=== PATIENT | female | born 1985 | race Caucasian/White ===

== ENCOUNTER 2016-07-14 19:33 | Emergency (ER) | payer SELFPAY ==
[2016-07-14 20:28] VITALS: BP 111/72
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
== END 2016-07-14 21:24 | disposition left against medical advice (07) ==
LOC: UCCORT 19:33
DX: M54.2 Cervicalgia (principal); Z91.030 Bee allergy status
CPT/HCPCS: 99213; G0463

== ENCOUNTER 2016-10-09 17:51 | Emergency (ER) | payer OTHER ==
[2016-10-09] MEDS ORDERED: Aspirin Low Dose CHEW TAB* 81 MG PO ONE (18:09)
[2016-10-09] MEDS ORDERED: Nitroglycerin TAB 0.4 MG* 0.4 MG TAB SL ONE (18:17)
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
[2016-10-09 18:51] VITALS: BP 127/80
== END 2016-10-09 18:45 | disposition short-term general hospital (02) ==
LOC: UCEAST 17:51
DX: R07.9 Chest pain, unspecified (principal); Z91.030 Bee allergy status
CPT/HCPCS: 93005; 99213; A9270-GY; G0463

== ENCOUNTER 2016-10-09 19:03 | Observation (INO) | payer OTHER ==
[2016-10-09] MEDS ORDERED: NS 0.9% 1000 ML* 1,000 ML IV ONE (19:18)
[2016-10-09] MEDS ORDERED: Nitroglycerin TAB 0.4 MG* 0.4 MG TAB SL PRN ×2 (19:18→21:26)
[2016-10-09 19:39] LABS: Hematocrit 37 % (35-47); Hemoglobin 12.5 g/dl (12.0-16.0); Mean Corpuscular HGB Conc 34 g/dl (31-36); Mean Corpuscular Hemoglobin 31 pg (27-31); Mean Corpuscular Volume 92 fL (80-97); Mean Platelet Volume 9 um3 (7.4-10.4); Red Blood Count 4.03 10^6/ul (4.0-5.4); Red Cell Distribution Width 13 % (10.5-15); White Blood Count 6.8 10^3/ul (3.5-10.8)
[2016-10-09 19:49] LABS: ALT 10 U/L (7-52); AST 15 U/L (13-39); Albumin 4.1 g/dL (3.2-5.2); Alkaline Phosphatase 30 U/L (34-104); Anion Gap 8 mmol/L (2-11); BUN/Creatinine Ratio 22.9 (8-20); Blood Urea Nitrogen 19 mg/dL (6-24); CO2 Carbon Dioxide 26 mmol/L (22-32); Calcium 9.2 mg/dL (8.6-10.3); Chloride 103 mmol/L (101-111); Creatine Kinase 70 U/L (10-223); EGFR African American 103.1 (>60); EGFR Non-African American 80.2 (>60); Globulin 2.8 g/dL (2-4); Glucose 88 mg/dL (70-100); Magnesium 1.7 mg/dL (1.9-2.7); Potassium 3.4 mmol/L (3.5-5.0); Sodium 137 mmol/L (133-145); Total Protein 6.9 g/dL (6.4-8.9)
[2016-10-09 19:54] LABS: Troponin I 0.01 ng/mL (<0.04)
[2016-10-09 20:01] LABS: TSH (Thyroid Stimulating Horm) 1.79 mcIU/mL (0.34-5.60)
--- NOTE | 2016-10-09 20:09 | RAD ---
Indication: Mid to LEFT side chest pain. Comparison: December 17, 2011 Technique: Upright AP 1930 hours Report: Clear lungs and pleural spaces. Negative for pneumothorax. The heart, pulmonary vasculature, and mediastinal contours are unremarkable. Unremarkable osseous structures and soft tissue contours. IMPRESSION: No evidence for acute intrathoracic disease.
[2016-10-09] MEDS ORDERED: Ondansetron INJ* 2 MG/ML VIAL IV PRN (21:22)
[2016-10-09] MEDS ORDERED: Al Hydrox/Mg Hydrox/Simet LIQ* 30 ML UDC PO PRN (21:22)
[2016-10-09] MEDS ORDERED: Magnesium Hydroxide LIQ* 30 ML UDC PO PRN (21:22)
[2016-10-09] MEDS ORDERED: Magnesium Oxide TAB* 400 MG PO ONE (22:17)
[2016-10-09] MEDS ORDERED: Potassium Chlor TAB* 20 MEQ TAB.ER PO ONE (22:17)
[2016-10-09] MEDS: Acetaminophen TAB* 325 MG PO PRN (23:36)
--- NOTE | 2016-10-10 05:03 | ED ---
IJayden,Danelle, scribed for Selin Locke MD on 10/09/16 at 1915 . HPI Chest Pain - HPI Summary HPI Summary: This 31 y/o female [facility] for acute 7/10 left anterior chest tightness at 1500 PM. Pain radiates down to LUE and remains constant. Pt was sitting in couch with her kids at time of onset. Positive numbness/tingling. Negative diaphoresis or nausea that was associated with today 's episode. Pt was given ASA and NTG [facility]. Elevated blood pressure is reported at [facility]. Last BP [facility] was 120/76. PMHx is negative for prior cardiac dz. No similar pain before. Other PMHx includes ear tumor s/p left ear surgery. FHx is significant for early onset of heart disease before 40 years old. Her sister had DC at age 36. Father and grandfather had DC before 40 years old. LMP was 10/05/2016. Nonsmoker and nondrinker. A1 with miscarriage. - History of Current Complaint Hx Obtained From: Patient, Medical Records Hx Last Menstrual Period: one wk Onset/Duration: Started Hours Ago, Atraumatic, Still Present Time of Onset: 15:00 Timing: Constant Initial Severity: Severe Current Severity: Moderate Pain Intensity: 7 Pain Scale Used: 0-10 Numeric Chest Pain Location: Left Anterior Chest Pain Radiates: Yes Chest Pain Radiates To:: Arm - LUE Character: Tightness Aggravating Factor(s): Nothing Alleviating Factor(s): NTG 123 - 1 [facility] to ED with relief, EMS Tx Associated Signs and Symptoms: Positive: Chest Pain, Numbness - LUE, Tingling - LUE. Negative: Shortness of Breath, Fever, Diaphoresis, Nausea, Calf Pain/ Swelling, Vomiting - Risk Factors AMI/ACS Risk Factors: Family History - Allergy/Home Medications Allergies/Adverse Reactions: Allergies Allergy/AdvReac Type Severity Reaction Status Date / Time Bee Venom Allergy Shortness Verified 10/09/16 19:30 of Breath BEE STINGS Allergy Shortness Uncoded 10/09/16 17:58 of Breath PMH/Surg Hx/FS Hx/Imm Hx Previously Healthy: Yes Endocrine/Hematology History: Denies: Hx Anticoagulant Therapy, Hx Diabetes, Hx Thyroid Disease Cardiovascular History: Denies: Hx Congestive Heart Failure, Hx Deep Vein Thrombosis, Hx Hypertension , Hx Myocardial Infarction, Hx Pacemaker/ICD Respiratory History: Denies: Hx Asthma, Hx Chronic Obstructive Pulmonary Disease (COPD), Hx Lung Cancer, Hx Pneumonia, Hx Pulmonary Embolism GI History: Denies: Hx Gall Bladder Disease, Hx Gastrointestinal Bleed, Hx Ulcer, Hx Urosepsis History: Denies: Hx Kidney Stones, Hx Renal Disease Neurological History: Denies: Hx Dementia, Hx Migraine, Hx Seizures, Hx Transient Ischemic Attacks (TIA) Psychiatric History: Denies: Hx Anxiety, Hx Depression, Hx Schizophrenia, Hx Bipolar Disorder - Surgical History Surgery Procedure, Year, and Place: left ear surg for ear tumor - Immunization History Date of Tetanus Vaccine: up to date per pt. 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 Lives: With Family Alcohol Use: None Hx Substance Use: No Substance Use Type: Reports: None Hx Tobacco Use: No Smoking Status (MU): Never Smoked Tobacco Review of Systems Negative: Fever, Skin Diaphoresis Positive: Chest Pain Negative: Shortness Of Breath Negative: Vomiting, Nausea Skin: Negative Neurological: Negative Psychological: Normal All Other Systems Reviewed And Are Negative: Yes Physical Exam Triage Information Reviewed: Yes Vital Signs On Initial Exam: Initial Vitals Temp Pulse Resp BP Pulse Ox 99.2 F 92 11 122/79 97 10/09/16 19:17 10/09/16 19:17 10/09/16 19:17 10/09/16 19:17 10/09/16 19:17 Vital Signs Reviewed: Yes Appearance: Positive: Well-Appearing, No Pain Distress, Well-Nourished Skin: Positive: Warm, Skin Color Reflects Adequate Perfusion, Dry Head/Face: Positive: Normal Head/Face Inspection Eyes: Positive: Conjunctiva Clear ENT: Positive: Normal ENT inspection Neck: Positive: Supple, Nontender, No Lymphadenopathy Respiratory/Lung Sounds: Positive: Clear to Auscultation, Breath Sounds Present , Other - No respiratory distress Cardiovascular: Positive: RRR, Pulses are Symmetrical in both Upper and Lower Extremities. Negative: Leg Edema Left, Leg Edema Right Abdomen Description: Positive: Nontender, No Organomegaly, Soft. Negative: Distended, Guarding, Hepatomegaly, McBurney's Point Tenderness, Peritoneal Signs , Pulsatile Mass, Splenomegaly Bowel Sounds: Positive: Present Musculoskeletal: Positive: Strength/ROM Intact. Negative: Curry Sign Left, Curry Sign Right, Edema Left, Edema Right Neurological: Positive: Sensory/Motor Intact, Alert, Oriented to Person Place, Time, Facial Symmetry, Speech Normal Psychiatric: Positive: Affect/Mood Appropriate AVPU Assessment: Alert Diagnostics - Vital Signs Vital Signs Temp Pulse Resp BP Pulse Ox 10/09/16 21:15 85 20 130/80 97 10/09/16 21:00 84 22 127/91 97 10/09/16 20:45 88 23 127/78 98 10/09/16 20:30 80 21 122/78 98 10/09/16 20:15 82 24 106/76 98 10/09/16 20:00 84 16 109/60 99 10/09/16 19:56 88 16 117/61 100 10/09/16 19:50 80 18 119/74 98 10/09/16 19:47 82 18 98 10/09/16 19:45 120/79 10/09/16 19:18 89 10/09/16 19:17 99.2 F 92 11 122/79 97 - Laboratory Lab Results: Lab Results 10/09/16 10/09/16 10/09/16 Range/Units 18:25 18:25 18:25 WBC 6.8 (3.5-10.8) 10^3/ul RBC 4.03 (4.0-5.4) 10^6/ul Hgb 12.5 (12.0-16.0) g/dl Hct 37 (35-47) % MCV 92 (80-97) fL MCH 31 (27-31) pg MCHC 34 (31-36) g/dl RDW 13 (10.5-15) % Plt Count 211 (150-450) 10^3/ul MPV 9 (7.4-10.4) um3 Neut % (Auto) 49.5 (38-83) % Lymph % (Auto) 42.9 (25-47) % [facility] % (Auto) 4.4 (1-9) % Eos % (Auto) 2.4 (0-6) % Baso % (Auto) 0.8 (0-2) % Absolute Neuts (auto) 3.3 (1.5-7.7) 10^3/ul Absolute Lymphs (auto) 2.9 (1.0-4.8) 10^3/ul Absolute Monos (auto) 0.3 (0-0.8) 10^3/ul Absolute Eos (auto) 0.2 (0-0.6) 10^3/ul Absolute Basos (auto) 0.1 (0-0.2) 10^3/ul Absolute Nucleated RBC 0 10^3/ul Nucleated RBC % 0.1 INR (Anticoag Therapy) (0.89-1.11) APTT (26.0-36.3) seconds D-Dimer, Quantitative (Less Than 230) ng/mL Sodium 137 (133-145) mmol/L Potassium 3.4 L (3.5-5.0) mmol/L Chloride 103 (101-111) mmol/L Carbon Dioxide 26 (22-32) mmol/L Anion Gap 8 (2-11) mmol/L BUN 19 (6-24) mg/dL Creatinine 0.83 (0.51-0.95) mg/dL Est GFR ( Amer) 103.1 (>60) Est GFR (Non-Af Amer) 80.2 (>60) BUN/Creatinine Ratio 22.9 H (8-20) Glucose 88 (70-100) mg/dL Lactic Acid 0.8 (0.5-2.0) mmol/L Calcium 9.2 (8.6-10.3) mg/dL Magnesium 1.7 L (1.9-2.7) mg/dL Total Bilirubin 0.50 (0.2-1.0) mg/dL AST 15 (13-39) U/L ALT 10 (7-52) U/L Alkaline Phosphatase 30 L (34-104) U/L Total Creatine Kinase 70 (10-223) U/L CK-MB (CK-2) 2.1 (0.6-6.3) ng/mL Troponin I 0.01 (<0.04) ng/mL B-Natriuretic Peptide ( - 100) pg/mL Total Protein 6.9 (6.4-8.9) g/dL Albumin 4.1 (3.2-5.2) g/dL Globulin 2.8 (2-4) g/dL Albumin/Globulin Ratio 1.5 (1-3) TSH 1.79 (0.34-5.60) mcIU/mL Beta HCG, Quant < 0.60 mIU/mL 10/09/16 10/09/16 Range/Units 18:25 18:25 WBC (3.5-10.8) 10^3/ul RBC (4.0-5.4) 10^6/ul Hgb (12.0-16.0) g/dl Hct (35-47) % MCV (80-97) fL MCH (27-31) pg MCHC (31-36) g/dl RDW (10.5-15) % Plt Count (150-450) 10^3/ul MPV (7.4-10.4) um3 Neut % (Auto) (38-83) % Lymph % (Auto) (25-47) % [facility] % (Auto) (1-9) % Eos % (Auto) (0-6) % Baso % (Auto) (0-2) % Absolute Neuts (auto) (1.5-7.7) 10^3/ul Absolute Lymphs (auto) (1.0-4.8) 10^3/ul Absolute Monos (auto) (0-0.8) 10^3/ul Absolute Eos (auto) (0-0.6) 10^3/ul Absolute Basos (auto) (0-0.2) 10^3/ul Absolute Nucleated RBC 10^3/ul Nucleated RBC % INR (Anticoag Therapy) 0.97 (0.89-1.11) APTT 31.9 (26.0-36.3) seconds D-Dimer, Quantitative < 200 (Less Than 230) ng/mL Sodium (133-145) mmol/L Potassium (3.5-5.0) mmol/L Chloride (101-111) mmol/L Carbon Dioxide (22-32) mmol/L Anion Gap (2-11) mmol/L BUN (6-24) mg/dL Creatinine (0.51-0.95) mg/dL Est GFR ( Amer) (>60) Est GFR (Non-Af Amer) (>60) BUN/Creatinine Ratio (8-20) Glucose (70-100) mg/dL Lactic Acid (0.5-2.0) mmol/L Calcium (8.6-10.3) mg/dL Magnesium (1.9-2.7) mg/dL Total Bilirubin (0.2-1.0) mg/dL AST (13-39) U/L ALT (7-52) U/L Alkaline Phosphatase (34-104) U/L Total Creatine Kinase (10-223) U/L CK-MB (CK-2) (0.6-6.3) ng/mL Troponin I (<0.04) ng/mL B-Natriuretic Peptide 33 ( - 100) pg/mL Total Protein (6.4-8.9) g/dL Albumin (3.2-5.2) g/dL Globulin (2-4) g/dL Albumin/Globulin Ratio (1-3) TSH (0.34-5.60) mcIU/mL Beta HCG, Quant mIU/mL Result Diagrams: 10/09/16 18:25 10/09/16 18:25 Lab Statement: Any lab studies that have been ordered have been reviewed, and results considered in the medical decision making process. - Radiology CXR Xray Interpretation: No Acute Changes Radiology Interpretation Completed By: Radiologist - EKG 1928 Cardiac Rate: NL - 79 bpm EKG Rhythm: Sinus Rhythm EKG Interpretation: Normal EKG with normal AV/IV conduction, QTc of 421, and normal axis Re-Evaluation - Re-Evaluation First Eval Re-Evaluation Time: 20:55 Change: Improved Comment: MD in room to re-evaluate pt. Pain is currently 2/10 after 2 Nitro and ASA. 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 No heart murmur auscultated upon re-examination. Chest Pain Course/Dx - Course Course Of Treatment: Consultation: Dr. Holliday (Hospitalist) paged at 2046 PM. Call returned at 2100 PM. Agreeable to admission. Assessment/Plan: With the quality of pt's pain and strong fam hx and the fact that pain decreased with NTG, will admit obs for further evaluation and treatment of her chest pain. - Chest Pain Differential Diagnosis/HQI/PQRI: Acute DC, Chest Wall, GI Disease, Pulmonary Embolism - Diagnoses Provider Diagnoses: Chest pain - Provider Notifications Discussed Care Of Patient With: Joann Holliday Time Discussed With Above Provider: 21:01 Instructed by Provider To: Admit As Observation Discharge - Discharge Plan Condition: Stable Disposition: ADMITTED TO [facility] The documentation as recorded by the Jayden davis Soohyun accurately reflects the service I personally performed and the decisions made by Chucky payton Barbara J, MD.
--- NOTE | 2016-10-10 05:34 | HP ---
CC: Arnold Webster MD * HISTORY AND PHYSICAL: DATE OF ADMISSION: 10/09/16 TIME OF EVALUATION: 2099 PRIMARY CARE PHYSICIAN: Arnold Webster MD CHIEF COMPLAINT: Chest pain. HISTORY OF PRESENT ILLNESS: This is a 31-year-old female with a significant family cardiac history, who presents to the emergency room from Urgent Care via EMS for chest pain. The patient states she was sitting on her couch around 3 p.m. this afternoon with her daughters. While watching TV, she developed substernal chest pain. It started to radiate to the left and then it would radiate down her left arm intermittently with numbness and tingling down her arm. It seemed to get progressively worse without any relief with drinking water. She has had some slight nausea along with it. She went to Urgent Care for evaluation and they sent her to the emergency room due to her significant family history. No shortness of breath, no diaphoresis. This has never happened to her before. She denies any URI symptoms. No fevers or chills. No vomiting, diarrhea, or abdominal pain. No lower extremity swelling. She has had an intentional weight loss of 40 pounds over the past 6 months. Otherwise, remaining review of systems is negative. She did get a nitro that did help her chest pain, it is not as bad, but still present. Otherwise, remaining review of systems is negative. In the emergency room, the patient had labs, imaging, and was referred to the hospitalist service for further evaluation. PAST MEDICAL HISTORY: Unremarkable. MEDICATIONS: None. ALLERGIES: BEE VENOM. FAMILY HISTORY: Her sister is alive, had an OK at age 36. Her father had an OK when he was less than 40 years of age. She has a significant cardiac history on her father's side with all of his siblings having MIs at a young age. SOCIAL HISTORY: The patient is a [id number] mother with 4 children, ages 11, 8, 4, and 1. No smoking. She occasionally has wine. Her healthcare proxy is her , Evan. Her code status is full code. REVIEW OF SYSTEMS: A 14-point review of systems reviewed. Pertinent positives and negatives are mentioned in the HPI, otherwise are negative. PHYSICAL EXAMINATION GENERAL: In no acute distress, resting comfortably. VITAL SIGNS: Temp 99.2, pulse rate 85, respiratory rate 20, oxygen saturation 97 % on room air, blood pressure 130/80. HEENT: Head normocephalic, atraumatic. Pupils are equal and reactive. Anicteric. Oropharynx, mucous membranes moist. No erythema or exudate. NECK: Supple. No adenopathy. RESPIRATORY: Clear to auscultation. No wheezes, rhonchi, or rales. CARDIAC: Regular rate and rhythm. Soft systolic murmur heard throughout. ABDOMEN: Soft, nontender, nondistended. EXTREMITIES: No clubbing, cyanosis, or edema. +2 DP. NEUROLOGIC: Alert and oriented x3. No focal neurologic deficits. DIAGNOSTIC STUDIES/LAB DATA: White count 6.8, hemoglobin 12.5, hematocrit 37, platelets 211. INR is 0.97. D-dimer is less than 200. Sodium 137, potassium 3.4, chloride 103, bicarb 26, BUN 19, creatinine 0.83, glucose 88. Magnesium 1.7. Alk phos 30. Troponin 0.01. BNP is 33. HCG is less than 60. Radiographic data: No evidence for acute intrathoracic disease. EKG shows normal sinus rhythm. ASSESSMENT: This is a 31-year-old female, who presents to the emergency room with chest pain in the setting of significant cardiac family history. 1. Chest pain. Assessment: It has improved with nitro, but still present. Her initial workup is unremarkable; but in the setting of her significant family history, it is not unreasonable to admit her overnight for observation to rule out acute coronary syndrome and have a treadmill stress test in the morning. Plan: As mentioned, telemetry, trend her troponins, obtain a lipid panel, continue her on a baby aspirin for now. We will do a treadmill stress test in the morning. 2. Diet: Regular diet, n.p.o. after midnight in case her treadmill stress test has to become nuclear stress test. 3. DVT prophylaxis: The patient is a low risk patient. We will encourage ambulation. 4. Code status is full code. PATIENT TIME: Greater than 70 minutes spent doing the history and physical, more than half the time spent in direct patient contact. [id number] #: [id number] MTDD
[2016-10-10] MEDS ORDERED: NS 0.9% 1000 ML* 1,000 ML IV SCH (08:00)
[2016-10-10] MEDS ORDERED: Aspirin EC Low Dose* 81 MG TAB.EC PO SCH (09:00)
[2016-10-10] MEDS: Acetaminophen TAB* 325 MG PO PRN (12:00)
[2016-10-10 12:12] VITALS: BP 100/53
[2016-10-10 14:22] LABS: HDL Cholesterol 43.9 mg/dL
--- NOTE | 2016-10-11 03:40 | DS ---
CC: Dr. Webster * DISCHARGE SUMMARY: DATE OF ADMISSION: 10/09/16 DATE OF DISCHARGE: 10/10/16 PRIMARY CARE PROVIDER: Dr. Webster. PRINCIPAL DIAGNOSIS: Noncardiac chest pain. DISCHARGE MEDICATIONS: None. HOSPITAL COURSE: Ms. Mason is a 31-year-old female who has a very strong family history of premature coronary artery disease in both her sister and father, who presented to the emergency room with complaints of chest pain. The patient's chest pain began while sitting on the couch and radiates down her left arm. The patient presented to the emergency room for evaluation. She was admitted and ruled out for an acute coronary syndrome. The patient underwent an exercise stress echocardiogram that was read to be negative maximal stress echocardiogram. The patient at this point is chest pain free. She is stable and ready for discharge home. On the day of admission, the patient is awake, alert, and oriented, sitting up in bed, in no acute distress. Cardiac exam reveals normal S1 and S2 with a regular rate and rhythm. Cardiac exam revealed clear lungs bilaterally. There is no lower extremity edema. FOLLOWUP CONCERNS: The patient is being discharged home today 10/10/16. ACTIVITY LEVEL: As tolerated. DIET: Regular. CONDITION ON DISCHARGE: Stable. The patient should follow up with Dr. Webster within the next 1 to 2 weeks. TIME SPENT: 20 minutes were spent discharging this patient. [id number] #: [id number] MTDD
== END 2016-10-10 16:15 | disposition home or self-care (01) ==
LOC: ED 19:03 → MEDTELE 21:22
PROVIDERS: ADMIT Pediatrics; ATTEND Hospitalist
DX: R07.9 Chest pain, unspecified (principal); M79.602 Pain in left arm; Z82.49 Family history of ischemic heart disease and other diseases of the circulatory system
CPT/HCPCS: 36415; 71010; 80053; 80061; 82550; 82553; 83605; 83735; 83880; 84443; 84484; 84702; 85025; 85379; 85610; 85730; 93005; 93350; 96360; 96374; 99285; A9270-GY; G0378; J2405

== ENCOUNTER 2017-02-09 10:54 | Emergency (ER) | payer OTHER ==
[2017-02-09 11:09] VITALS: BP 113/75
--- NOTE | 2017-02-09 12:25 | UC ---
Ear Complaint HPI - HPI Summary HPI Summary: pt c/o left ear ache that has worsened over last 24 hours. Pt has history of left ear tumor, benign in 2003. - History of Current Complaint Chief Complaint: UCEar Stated Complaint: LEFT EAR PAIN Time Seen by Provider: 02/09/17 11:38 Hx Last Menstrual Period: 01/20/17 ?: No Onset/Duration: Gradual Onset, Lasting Days, Still Present, Worse Since - onset Pain Intensity: 0 Pain Scale Used: 0-10 Numeric Associated Signs/Symptoms: Positive: Hearing Loss, Swelling @ - out left ear - Allergies/Home Medications Allergies/Adverse Reactions: Allergies Allergy/AdvReac Type Severity Reaction Status Date / Time Bee Venom Allergy Shortness Verified 02/09/17 11:05 of Breath BEE STINGS Allergy Shortness Uncoded 02/09/17 11:05 of Breath PMH/Surg Hx/FS Hx/Imm Hx Previously Healthy: Yes Other History Of: Negative For: HIV, Hepatitis B, Hepatitis C, Anticoagulant Therapy - Surgical History Surgical History: Yes Surgery Procedure, Year, and Place: 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 - Family History Known Family History: Positive: Cardiac Disease - [place] before 40 to father and sister, Hypertension, Other - atopy - Social History Occupation: Employed Full-time Lives: With Family Alcohol Use: None Substance Use Type: None Smoking Status (MU): Never Smoked Tobacco Have You Smoked in the Last Year: No - Immunization History Most Recent Influenza Vaccination: 12/17/11 Most Recent Tetanus Shot: 2012 Most Recent Pneumonia Vaccination: 06/08/12 Review of Systems Constitutional: Negative Skin: Negative Eyes: Negative ENT: Ear Ache Respiratory: Negative Cardiovascular: Negative Gastrointestinal: Negative Genitourinary: Negative Motor: Negative Neurovascular: Negative Musculoskeletal: Negative Neurological: Negative Psychological: Negative Is Patient Immunocompromised?: No All Other Systems Reviewed And Are Negative: Yes Physical Exam Triage Information Reviewed: Yes Appearance: Well-Appearing Vital Signs: Initial Vital Signs Temp 99.7 F 02/09/17 11:05 Pulse 62 02/09/17 11:05 Resp 20 02/09/17 11:05 BP 113/75 02/09/17 11:05 Pulse Ox 100 02/09/17 11:05 Vital Signs Reviewed: Yes Eye Exam: Normal ENT Exam: Other ENT: Positive: Other - left ear canal cerumen impaction, tragal tenderness Dental Exam: Normal Neck exam: Normal Respiratory Exam: Normal Cardiovascular Exam: Normal Musculoskeletal Exam: Normal Neurological Exam: Normal Psychological Exam: Normal Skin Exam: Normal Ear Complaint Course/Dx - Differential Dx/Diagnosis Differential Diagnosis/HQI/PQRI: Cerumen Impaction, Otitis Media Provider Diagnoses: cerumen impaction-left ear Discharge - Discharge Plan Condition: Stable Disposition: HOME Patient Education Materials: Cerumen Impaction (ED) Referrals: Arnold Webster MD [Primary Care Provider] - If Needed
== END 2017-02-09 12:09 | disposition home or self-care (01) ==
LOC: UCCORT 10:54
DX: H61.22 Impacted cerumen, left ear (principal)
CPT/HCPCS: 69209; 99211; G0463

== ENCOUNTER 2017-04-10 11:36 | Emergency (ER) | payer OTHER ==
[2017-04-10 14:44] VITALS: BP 140/80
--- NOTE | 2017-04-10 15:12 | ED ---
Abdominal Pain/Female - HPI Summary HPI Summary: 31 yr old female with lower abdominal pain. The patient states that she had onset of lower abdominal pain that radiates into the low back last evening at 8 pm when she was sitting on the couch. She denies fever, chills. The patient denies NVD. Denies vaginal discharge, bleeding. Denies dysuria, frequency. She states she had an ectopic 11 years ago. LMP mid Mar. - History of Current Complaint Chief Complaint: UCAbdominalPain Stated Complaint: LOWER BACK/ABDOMINAL PAIN Time Seen by Provider: 04/10/17 14:57 Hx Last Menstrual Period: 03/19/17 Pain Intensity: 7 Allergies/Adverse Reactions: Allergies Allergy/AdvReac Type Severity Reaction Status Date / Time MS Bee Venom [Bee Venom] Allergy Shortness Verified 04/10/17 14:45 of Breath BEE STINGS Allergy Shortness Uncoded 02/09/17 11:05 of Breath PMH/Surg Hx/FS Hx/Imm Hx Endocrine/Hematology History: Denies: Hx Anticoagulant Therapy, Hx Diabetes, Hx Thyroid Disease Cardiovascular History: Denies: Hx Congestive Heart Failure, Hx Deep Vein Thrombosis, Hx Hypertension , Hx Myocardial Infarction, Hx Pacemaker/ICD Comment Only: Other Cardiovascular Problems/Disorders - Family Hx of cardiac Dxs Respiratory History: Denies: Hx Asthma, Hx Chronic Obstructive Pulmonary Disease (COPD), Hx Lung Cancer, Hx Pneumonia, Hx Pulmonary Embolism GI History: Denies: Hx Gall Bladder Disease, Hx Gastrointestinal Bleed, Hx Ulcer, Hx Urosepsis History: Reports: Other Problems/Disorders - ulcers Denies: Hx Kidney Stones, Hx Renal Disease Sensory History: Denies: Hx Contacts or Glasses, Hx Hearing Aid Opthamlomology History: Denies: Hx Contacts or Glasses Neurological History: Denies: Hx Dementia, Hx Migraine, Hx Seizures, Hx Transient Ischemic Attacks (TIA) Psychiatric History: Denies: Hx Anxiety, Hx Depression, Hx Schizophrenia, Hx Bipolar Disorder - Surgical History Surgery Procedure, Year, and Place: 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 Infectious Disease History: No Infectious Disease History: Denies: History Other Infectious Disease, Traveled Outside the [place] in Last 30 Days - Family History Known Family History: Positive: Cardiac Disease - [place] before 40 to father and sister, Hypertension, Other - atopy - Social History Occupation: Works From/At Home Lives: With Family Alcohol Use: Rare Hx Substance Use: No Substance Use Type: Reports: None Hx Tobacco Use: No Smoking Status (MU): Never Smoked Tobacco Have You Smoked in the Last Year: No Review of Systems Constitutional: Negative Positive: Abdominal Pain All Other Systems Reviewed And Are Negative: Yes Physical Exam Triage Information Reviewed: Yes Vital Signs On Initial Exam: Initial Vitals Temp Pulse Resp BP Pulse Ox 99.4 F 74 14 140/80 100 04/10/17 14:38 04/10/17 14:38 04/10/17 14:38 04/10/17 14:38 04/10/17 14:38 Vital Signs Reviewed: Yes Appearance: Positive: Well-Appearing, No Pain Distress Skin: Positive: Warm, Skin Color Reflects Adequate Perfusion Head/Face: Positive: Normal Head/Face Inspection Eyes: Positive: EOMI ENT: Positive: Normal ENT inspection Neck: Positive: Nontender Respiratory/Lung Sounds: Positive: Clear to Auscultation, Breath Sounds Present Cardiovascular: Positive: RRR. Negative: Murmur Abdomen Description: Positive: Other: - tender in both lower quadrants. Musculoskeletal: Positive: Strength/ROM Intact Neurological: Positive: Sensory/Motor Intact, Alert, Oriented to Person Place, Time, CN Intact II-III Psychiatric: Positive: Normal - [place] Coma Scale Best Eye Response: 4 - Spontaneous Best Motor Response: 6 - Obeys Commands Best Verbal Response: 5 - Oriented Coma Scale Total: 15 Diagnostics - Vital Signs Vital Signs Temp Pulse Resp BP Pulse Ox 04/10/17 14:38 99.4 F 74 14 140/80 100 - Laboratory Lab Results: Lab Results 04/10/17 04/10/17 Range/Units 14:15 14:19 POC Urine Color Yellow POC Urine Clarity Slightly cloudy POC Urine pH 5.5 (5-9) POC Ur Specif [place] 1.025 (1.010-1.030) POC Urine Protein Negative (Negative) POC Ur Glucose (UA) Negative (Negative) POC Urine Ketones Negative (Negative) POC Urine Blood Negative (Negative) POC Urine Nitrite Negative (Negative) POC Urine Bilirubin Negative (Negative) POC Urine Urobilinogen 0.2 (Negative) POC U Leukocyte Esteras Negative (Negative) POC Ur Test Negative (Negative) Lab Statement: Any lab studies that have been ordered have been reviewed, and results considered in the medical decision making process. Abdominal Pain Fem Course/Dx - Course Course Of Treatment: 31 yr old female with neg HCG and neg UA dip. She signed out AMA. She was offered transfer to ER by ambulance, but refused and signed out AMA. Risks understood. - Diagnoses Provider Diagnoses: Abdominal pain Discharge - Discharge Plan Condition: Good Disposition: AGAINST MEDICAL ADVICE Referrals: Arnold Webster MD [Primary Care Provider] -
== END 2017-04-10 15:08 | disposition left against medical advice (07) ==
LOC: UCCORT 11:36
DX: R10.30 Lower abdominal pain, unspecified (principal); Z32.02 Encounter for pregnancy test, result negative
CPT/HCPCS: 81003; 84702; 99212; G0463

== ENCOUNTER 2017-07-23 12:07 | Emergency (ER) | payer OTHER ==
[2017-07-23 13:12] LABS: ABS Basophils 0 10^3/ul (0-0.2); ABS Eosinophils 0 10^3/ul (0-0.6); ABS Lymphocytes 1.7 10^3/ul (1.0-4.8); ABS Monocytes 0.3 10^3/ul (0-0.8); ABS Neutrophils 5.3 10^3/ul (1.5-7.7); ABS Nucleated RBC 0 10^3/ul; Eosinophil % 0.7 % (0-6); Hematocrit 39 % (35-47); Hemoglobin 13.3 g/dl (12.0-16.0); Lymphocyte % 22.9 % (25-47); Mean Corpuscular HGB Conc 34 g/dl (31-36); Mean Corpuscular Hemoglobin 31 pg (27-31); Mean Corpuscular Volume 92 fL (80-97); Mean Platelet Volume 8.7 um3 (7.4-10.4); Nucleated Red Blood Cells % 0; Platelet Count 185 10^3/ul (150-450); Red Blood Count 4.25 10^6/ul (4.0-5.4); Red Cell Distribution Width 13 % (10.5-15); White Blood Count 7.5 10^3/ul (3.5-10.8)
[2017-07-23 13:27] LABS: INR 0.98 (0.77-1.02)
[2017-07-23 13:29] LABS: EGFR Non-African American 104.5 (>60)
--- NOTE | 2017-07-23 15:26 | RAD ---
HISTORY: Cramping, COMPARISONS: None TECHNIQUE: Multiple transverse and longitudinal ultrasound images were obtained of the pelvis using grayscale, and M-Mode Doppler imaging using the endovaginal transducer. FINDINGS: UTERUS: The uterus is normal in shape, size, contour, and echotexture. GESTATION: There is a single live intrauterine gestation. The crown-rump length measures 1.69 cm for a gestational age of 8 weeks, 1 day. The RJ is March 03, 2018. cardiac motion is detected at a rate of 169 beats per minute. movement is not identified. anatomy cannot be assessed secondary to early dates. The amniotic fluid is qualitatively normal. There is a small subchorionic hemorrhage measuring approximately 0.3 x 2 x 2.6 cm in size. CUL-DE-SAC: There is a small amount of fluid within the cul-de-sac. RIGHT OVARY: The right ovary measures 2.7 x 2.1 x 1.5 cm. LEFT OVARY: The left ovary measures 3.3 x 1.8 x 2.6 cm. A corpus luteum is noted BLADDER: The bladder is not well visualized. IMPRESSION: 1. SINGLE LIVE INTRAUTERINE GESTATION AT 8 WEEKS, 1 DAY BY CROWN-RUMP LENGTH. 2. SMALL SUBCHORIONIC HEMORRHAGE.
--- NOTE | 2017-07-23 15:55 | ED ---
- HPI Summary HPI Summary: Patient is a 31-year-old 9 week female based on LMP ( approximately June 03), however unknown due to irregularity, presents to the ED with a concern for embryonic demise. She endorses some bilateral lower abdominal pain which has been intermittent, rated a 3/10, cramping without vaginal bleeding. Denies any chance of STD. is at bedside. Denies any spotting or vaginal discharge. She states she has been feeling otherwise well. Denies any urinary symptoms. She denies any right upper or left upper quadrant pain. She is otherwise healthy, takes no medications. Pain is not worse with movement or better with rest. She states she had a spontaneous at 14 weeks and was asymptomatic at the time, which causes her for more concern. Denies any back pain. She endorses nausea, but no vomiting. - History of Current Complaint Chief Complaint: EDOBProblems Stated Complaint: CRAMPING/8 WEEKS PREG Time Seen by Provider: 07/23/17 13:24 Hx Obtained From: Patient Chief Complaint: Concern for Embryonic Dem Onset/Duration: Started Days Ago Timing: Constant Severity: Moderate Current Severity: Moderate Pain Intensity: 3 Character: Dull Associated Signs and Symptoms: Negative: Appetite, Back Pain, Fever, Genital Swelling or Blisters, Retained Foreign Body (Specify), Urinary Symptoms, Vaginal Bleeding or Discharge - Assessment Hx Now: Yes SAB: 1 IEA: 0 - Additional Pertinent History Primary Care Physician: [id number] Maternal Blood Type and Rh: A Positive - Allergies/Home Medications Allergies/Adverse Reactions: Allergies Allergy/AdvReac Type Severity Reaction Status Date / Time bee venom protein (honey bee) Allergy Shortness Verified 07/23/17 12:09 of Breath PMH/Surg Hx/FS Hx/Imm Hx Previously Healthy: Yes Endocrine/Hematology History: Denies: Hx Anticoagulant Therapy, Hx Diabetes, Hx Thyroid Disease Cardiovascular History: Denies: Hx Congestive Heart Failure, Hx Deep Vein Thrombosis, Hx Hypertension , Hx Myocardial Infarction, Hx Pacemaker/ICD Comment Only: Other Cardiovascular Problems/Disorders - Family Hx of cardiac Dxs Respiratory History: Denies: Hx Asthma, Hx Chronic Obstructive Pulmonary Disease (COPD), Hx Lung Cancer, Hx Pneumonia, Hx Pulmonary Embolism GI History: Denies: Hx Gall Bladder Disease, Hx Gastrointestinal Bleed, Hx Ulcer, Hx Urosepsis History: Reports: Other Problems/Disorders - ulcers Denies: Hx Kidney Stones, Hx Renal Disease Sensory History: Denies: Hx Contacts or Glasses, Hx Hearing Aid Opthamlomology History: Denies: Hx Contacts or Glasses Neurological History: Denies: Hx Dementia, Hx Migraine, Hx Seizures, Hx Transient Ischemic Attacks (TIA) Psychiatric History: Denies: Hx Anxiety, Hx Depression, Hx Schizophrenia, Hx Bipolar Disorder - Surgical History Surgery Procedure, Year, and Place: 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 Hx Pertussis Vaccination: No Immunizations Up to Date: Yes Infectious Disease History: No Infectious Disease History: Denies: History Other Infectious Disease, Traveled Outside the [place] in Last 30 Days - Family History Known Family History: Positive: Cardiac Disease - [place] before 40 to father and sister, Hypertension, Other - atopy - Social History Occupation: Employed Full-time Lives: With Family Alcohol Use: Rare Hx Substance Use: No Substance Use Type: Reports: None Hx Tobacco Use: No Smoking Status (MU): Never Smoked Tobacco Have You Smoked in the Last Year: No Review of Systems Constitutional: Negative Negative: Fever, Chills, Fatigue, Skin Diaphoresis Negative: Photophobia, Blurred Vision Negative: Palpitations, Chest Pain Negative: Shortness Of Breath, Cough Positive: Abdominal Pain - lower abdominal cramping bilateral Genitourinary: Negative Positive: no symptoms reported, see HPI Skin: Negative Neurological: Negative All Other Systems Reviewed And Are Negative: Yes Physical Exam - Physical Exam Triage Information Reviewed: Yes Appearance: Positive: Well-Appearing, Well-Nourished Skin: Positive: Warm, Skin Color Reflects Adequate Perfusion Head/Face: Positive: Normal Head/Face Inspection Eyes: Positive: EOMI, RAQUEL, Conjunctiva Clear Neck: Positive: Supple, No Lymphadenopathy Respiratory/Lung Sounds: Positive: Clear to Auscultation, Breath Sounds Present Cardiovascular: Positive: Normal, RRR, Pulses are Symmetrical in both Upper and Lower Extremities Musculoskeletal: Positive: Strength/ROM Intact Neurological: Positive: Normal, Sensory/Motor Intact, Speech Normal Psychiatric: Positive: Affect/Mood Appropriate Diagnostics - Vital Signs Vital Signs Temp Pulse Resp BP Pulse Ox 07/23/17 13:40 98.6 F 76 17 112/63 100 07/23/17 12:10 98.1 F 71 14 131/75 99 - Laboratory Lab Results: Lab Results 07/23/17 07/23/17 07/23/17 Range/Units 13:01 13:01 13:01 WBC 7.5 (3.5-10.8) 10^3/ul RBC 4.25 (4.0-5.4) 10^6/ul Hgb 13.3 (12.0-16.0) g/dl Hct 39 (35-47) % MCV 92 (80-97) fL MCH 31 (27-31) pg MCHC 34 (31-36) g/dl RDW 13 (10.5-15) % Plt Count 185 (150-450) 10^3/ul MPV 8.7 (7.4-10.4) um3 Neut % (Auto) 71.3 (38-83) % Lymph % (Auto) 22.9 L (25-47) % [place] % (Auto) 4.5 (0-7) % Eos % (Auto) 0.7 (0-6) % Baso % (Auto) 0.6 (0-2) % Absolute Neuts (auto) 5.3 (1.5-7.7) 10^3/ul Absolute Lymphs (auto) 1.7 (1.0-4.8) 10^3/ul Absolute Monos (auto) 0.3 (0-0.8) 10^3/ul Absolute Eos (auto) 0 (0-0.6) 10^3/ul Absolute Basos (auto) 0 (0-0.2) 10^3/ul Absolute Nucleated RBC 0 10^3/ul Nucleated RBC % 0 INR (Anticoag Therapy) 0.98 (0.77-1.02) Sodium 136 L (139-145) mmol/L Potassium 4.0 (3.5-5.0) mmol/L Chloride 106 (101-111) mmol/L Carbon Dioxide 26 (22-32) mmol/L Anion Gap 4 (2-11) mmol/L BUN 10 (6-24) mg/dL Creatinine 0.66 (0.51-0.95) mg/dL Est GFR ( Amer) 134.3 (>60) Est GFR (Non-Af Amer) 104.5 (>60) BUN/Creatinine Ratio 15.2 (8-20) Glucose 122 H (70-100) mg/dL Calcium 9.4 (8.6-10.3) mg/dL Total Bilirubin 0.60 (0.2-1.0) mg/dL AST 16 (13-39) U/L ALT 12 (7-52) U/L Alkaline Phosphatase 35 (34-104) U/L Total Protein 7.3 (6.4-8.9) g/dL Albumin 4.4 (3.2-5.2) g/dL Globulin 2.9 (2-4) g/dL Albumin/Globulin Ratio 1.5 (1-3) Beta HCG, Quant 857307.00 mIU/mL Blood Type Antibody Screen 07/23/17 Range/Units 13:01 WBC (3.5-10.8) 10^3/ul RBC (4.0-5.4) 10^6/ul Hgb (12.0-16.0) g/dl Hct (35-47) % MCV (80-97) fL MCH (27-31) pg MCHC (31-36) g/dl RDW (10.5-15) % Plt Count (150-450) 10^3/ul MPV (7.4-10.4) um3 Neut % (Auto) (38-83) % Lymph % (Auto) (25-47) % [place] % (Auto) (0-7) % Eos % (Auto) (0-6) % Baso % (Auto) (0-2) % Absolute Neuts (auto) (1.5-7.7) 10^3/ul Absolute Lymphs (auto) (1.0-4.8) 10^3/ul Absolute Monos (auto) (0-0.8) 10^3/ul Absolute Eos (auto) (0-0.6) 10^3/ul Absolute Basos (auto) (0-0.2) 10^3/ul Absolute Nucleated RBC 10^3/ul Nucleated RBC % INR (Anticoag Therapy) (0.77-1.02) Sodium (139-145) mmol/L Potassium (3.5-5.0) mmol/L Chloride (101-111) mmol/L Carbon Dioxide (22-32) mmol/L Anion Gap (2-11) mmol/L BUN (6-24) mg/dL Creatinine (0.51-0.95) mg/dL Est GFR ( Amer) (>60) Est GFR (Non-Af Amer) (>60) BUN/Creatinine Ratio (8-20) Glucose (70-100) mg/dL Calcium (8.6-10.3) mg/dL Total Bilirubin (0.2-1.0) mg/dL AST (13-39) U/L ALT (7-52) U/L Alkaline Phosphatase (34-104) U/L Total Protein (6.4-8.9) g/dL Albumin (3.2-5.2) g/dL Globulin (2-4) g/dL Albumin/Globulin Ratio (1-3) Beta HCG, Quant mIU/mL Blood Type A Positive Antibody Screen Negative Result Diagrams: 07/23/17 13:01 07/23/17 13:01 Lab Statement: Any lab studies that have been ordered have been reviewed, and results considered in the medical decision making process. Course/Dx - Course Course Of Treatment: Pain is not felt on deep palpation on physical exam. Vital signs are stable. Labs are unremarkable. HCG 181,000+, ultrasound obtained which shows a live intrauterine at approximately 8 weeks and 1 day based on crown-rump hump. Patient is made aware. She states she is okay for discharge and will follow-up with [facility]. I have also given her information on subchorionic hemorrhage. Patient is given Reglan, safe in , for nausea/vomiting associated with . - Differential Diagnosis/HQI/PQRI: Incomplete , Missed , Spontaneous , Threatened , Early , Subchorionic Hemorrhage - Diagnoses Provider Diagnoses: Subchorionic hemorrhage, Discharge - Sign-Out/Discharge Documenting (check all that apply): Discharge/Admit/Transfer - Discharge Plan Condition: Stable Disposition: HOME Prescriptions: Metoclopramide TAB* [Reglan TAB*] 10 mg PO Q6H PRN #20 tab PRN Reason: Nausea Patient Education Materials: (ED), Subchorionic Hemorrhage (ED) Referrals: Arnold Webster MD [Primary Care Provider] - Medhat Parrish MD [Medical Doctor] - Additional Instructions: Please follow up with OBGYN Take Reglan as prescribed If you develop any worsening or changing symptoms, return to the ED - Billing Disposition and Condition Condition: STABLE Disposition: HOME
[2017-07-23 16:08] VITALS: BP 113/63
== END 2017-07-23 16:11 | disposition home or self-care (01) ==
LOC: ED 12:07
DX: O20.8 Other hemorrhage in early pregnancy (principal); Z3A.09 9 weeks gestation of pregnancy
CPT/HCPCS: 36415; 76801; 80053; 84702; 85025; 85610; 86850; 86900; 86901; 99282

== ENCOUNTER 2017-08-25 18:46 | Emergency (ER) | payer OTHER ==
[2017-08-25 20:46] LABS: ABS Basophils 0 10^3/ul (0-0.2); ABS Eosinophils 0.2 10^3/ul (0-0.6); ABS Lymphocytes 1.6 10^3/ul (1.0-4.8); ABS Monocytes 0.4 10^3/ul (0-0.8); ABS Neutrophils 5.6 10^3/ul (1.5-7.7); ABS Nucleated RBC 0 10^3/ul; Eosinophil % 2.6 % (0-6); Hematocrit 37 % (35-47); Hemoglobin 12.9 g/dl (12.0-16.0); Lymphocyte % 20.2 % (25-47); Mean Corpuscular HGB Conc 35 g/dl (31-36); Mean Corpuscular Hemoglobin 32 pg (27-31); Mean Corpuscular Volume 92 fL (80-97); Mean Platelet Volume 8.9 um3 (7.4-10.4); Nucleated Red Blood Cells % 0; Platelet Count 170 10^3/ul (150-450); Red Blood Count 4.04 10^6/ul (4.00-5.40); Red Cell Distribution Width 14 % (10.5-15); White Blood Count 7.9 10^3/ul (3.5-10.8)
[2017-08-25 21:02] LABS: EGFR Non-African American 100.3 (>60)
--- NOTE | 2017-08-25 21:43 | RAD ---
HISTORY: Vaginal bleeding COMPARISONS: Similar pelvic ultrasound dated July 23, 2017 that yielded a gestational age of 8 weeks and 1 day TECHNIQUE: Multiple transverse and longitudinal ultrasound images were obtained of the pelvis using grayscale, color flow, spectral and M-mode sonographic imaging. FINDINGS: UTERUS: The uterus is normal in shape, size, contour, and echotexture. GESTATION: There is a single live intrauterine gestation. The crown-rump length measures 7.1 cm yielding a gestational age of 13 weeks and 2 days. The mean gestational sac diameter measures 7.6 centimeters. cardiac motion is detected at a rate of 170 beats per minute. CUL-DE-SAC: There is no free fluid within the cul-de-sac. RIGHT OVARY: The right ovary measures 3.0 x 1.3 x 2.9 cm. LEFT OVARY: The left ovary measures 2.9 x 1.7 x 3.1 cm. IMPRESSION: Single live intrauterine gestation with a crown-rump length yielding a gestational age of 13 weeks and 2 days.
[2017-08-25 21:54] LABS: Urine Appearance Cloudy; Urine Blood Negative (Negative); Urine Color Yellow; Urine Ketones Negative (Negative); Urine Protein Negative (Negative); Urine Specific Gravity 1.018 (1.010-1.030); Urine Urobilinogen Negative (Negative)
[2017-08-25] MEDS ORDERED: Nitrofurantoin Macrocrystals* 100 MG CAP PO ONE (21:59)
--- NOTE | 2017-08-25 22:05 | ED ---
Matt Rodriguez Rebecca, scribed for Selin Locke MD on 08/25/17 at 205 . - HPI Summary HPI Summary: Pt is a 32 y/o F who is almost 14 weeks who presents to ED c/o abdominal pain and vaginal bleeding. Sx began yesterday. Bleeding described as bright red blood characterized as spotting that did not require a pad and resolved today. Pain is located in the lower abdomen, characterized as cramping , and moderate ranked 6/10. Denies dysuria, polydipsia and polyuria. Similar episode at 8 weeks of (6 weeks ago) during which she was given a Dx of subchorionic hemorrhage and she also experienced pain at that time. A1 - miscarriage at 14 weeks and her current symptoms are not similar to when she had a miscarriage. Oldest child is 12 years old and the youngest is 2, last delivery through [facility] and she has never received rhogam. Has previously had placenta previa though she has never had gestational diabetes or preeclampsia. Follows up with [facility] [place] and is taking vitamins. LNMP June 02, 2017 and due date is March 02, 2018. - History of Current Complaint Chief Complaint: EDOBProblems Stated Complaint: 14 WKS PREG/VAGINAL BLEEDING Time Seen by Provider: 08/25/17 20:41 Hx Obtained From: Patient Chief Complaint: Pain, Vaginal Bleeding Onset/Duration: Started Days Ago - 2 days, Still Present Current Severity: Moderate Pain Intensity: 6 Location of Pain: Suprapubic Character: Cramping Aggravating Factors: Nothing Alleviating Factors: Nothing - Assessment Hx Now: Yes SAB: 1 IEA: 0 - Additional Pertinent History Primary Care Physician: [id number] Maternal Blood Type and Rh: A Positive - Allergies/Home Medications Allergies/Adverse Reactions: Allergies Allergy/AdvReac Type Severity Reaction Status Date / Time bee venom protein (honey bee) Allergy Shortness Verified 08/25/17 19:05 of Breath PMH/Surg Hx/FS Hx/Imm Hx Endocrine/Hematology History: Denies: Hx Anticoagulant Therapy, Hx Diabetes, Hx Thyroid Disease Cardiovascular History: Denies: Hx Congestive Heart Failure, Hx Deep Vein Thrombosis, Hx Hypertension , Hx Myocardial Infarction, Hx Pacemaker/ICD Comment Only: Other Cardiovascular Problems/Disorders - Family Hx of cardiac Dxs Respiratory History: Denies: Hx Asthma, Hx Chronic Obstructive Pulmonary Disease (COPD), Hx Lung Cancer, Hx Pneumonia, Hx Pulmonary Embolism GI History: Denies: Hx Gall Bladder Disease, Hx Gastrointestinal Bleed, Hx Ulcer, Hx Urosepsis History: Reports: Other Problems/Disorders - ulcers Denies: Hx Kidney Stones, Hx Renal Disease Sensory History: Denies: Hx Contacts or Glasses, Hx Hearing Aid Opthamlomology History: Denies: Hx Contacts or Glasses Neurological History: Denies: Hx Dementia, Hx Migraine, Hx Seizures, Hx Transient Ischemic Attacks (TIA) Psychiatric History: Denies: Hx Anxiety, Hx Depression, Hx Schizophrenia, Hx Bipolar Disorder - Surgical History Surgery Procedure, Year, and Place: 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 Infectious Disease History: No Infectious Disease History: Denies: History Other Infectious Disease, Traveled Outside the [place] in Last 30 Days - Family History Known Family History: Positive: Cardiac Disease - [place] before 40 to father and sister, Hypertension, Diabetes - Grandmother, Other - atopy - Social History Alcohol Use: Rare Hx Substance Use: No Substance Use Type: Reports: None Hx Tobacco Use: No Smoking Status (MU): Never Smoked Tobacco Have You Smoked in the Last Year: No Review of Systems Negative: Fever Positive: Abdominal Pain - Cramping Positive: other - Vaginal bleeding; NEGATIVE: Polydipsia, polyuria. Negative: dysuria All Other Systems Reviewed And Are Negative: Yes Physical Exam - Summary Physical Exam Summary: Appearance: Well-appearing, minimal pain distress, well-nourished Skin: Warm, color reflects adequate perfusion, dry Head: Normal Head/Face inspection, atraumatic Eyes: Conjunctiva clear ENT: Normal inspection Neck: Supple, no nodes, no JVD Respiratory: Lungs clear, normal breath sounds, no respiratory distress Cardio: RRR, No murmur, pulses normal, brisk capillary refill Abdomen: Soft, nontender, , fundus palpable 3 fingers breadth below umbilicus Bowel sounds: Present Musculoskeletal: Strength Intact/ROM intact, no calf tenderness, no edema. Psychological: Normal Neuro: Alert, muscle tone normal, no focal deficit - Physical Exam Triage Information Reviewed: Yes Vital Signs On Initial Exam: Initial Vitals Temp Pulse Resp BP Pulse Ox 98.5 F 78 14 117/68 100 08/25/17 19:06 08/25/17 19:06 08/25/17 19:06 08/25/17 19:06 08/25/17 19:06 Vital Signs Reviewed: Yes Diagnostics - Vital Signs Vital Signs Temp Pulse Resp BP Pulse Ox 08/25/17 19:06 98.5 F 78 14 117/68 100 - Laboratory Result Diagrams: 08/25/17 20:39 08/25/17 20:39 Lab Statement: Any lab studies that have been ordered have been reviewed, and results considered in the medical decision making process. - Ultrasound No standard instances Ultrasound Interpretation Completed By: Radiologist - US : Single live intrauterine gestation with a crown-rump length yielding a gestational age of 13 weeks and 2 days. ED physician reviewed this report. Re-Evaluation - Re-Evaluation First Eval Re-Evaluation Time: 21:45 Comment: Discussed US results. Second Eval Re-Evaluation Time: 21:54 Comment: Discussed lab results. The pt is in no pain and has no bleeding. Discussed discharge. Course/Dx - Course Course Of Treatment: Patient is A positive blood type so no need for rhogam. - Diagnoses Provider Diagnoses: Vaginal bleeding, Second trimester , UTI in Discharge - Sign-Out/Discharge Documenting (check all that apply): Discharge/Admit/Transfer - Discharge - Discharge Plan Condition: Stable Disposition: HOME Referrals: Arnold Webster MD [Primary Care Provider] - The documentation as recorded by the Matt davis Rebecca accurately reflects the service I personally performed and the decisions made by , Selin Locke MD.
[2017-08-25 22:35] VITALS: BP 104/65
== END 2017-08-25 22:25 | disposition home or self-care (01) ==
LOC: ED 18:46
DX: O46.92 Antepartum hemorrhage, unspecified, second trimester (principal); O23.42 Unspecified infection of urinary tract in pregnancy, second trimester; Z3A.14 14 weeks gestation of pregnancy
CPT/HCPCS: 36415; 76801; 80053; 81003; 81015; 83605; 85025; 85730; 86850; 86900; 86901; 87086; 99283; A9270-GY

== ENCOUNTER → 2017-09-10 20:38 | Emergency (ER) | payer OTHER ==
[~2017-09-10 20:38] MED LIST: Metoclopramide IV* 5 MG/ML 2 ML VIAL IV ONE; NS 0.9% 1000 ML* 1,000 ML IV ONE
[2017-09-10 21:56] LABS: ABS Basophils 0 10^3/ul (0-0.2); ABS Eosinophils 0.1 10^3/ul (0-0.6); ABS Lymphocytes 1.5 10^3/ul (1.0-4.8); ABS Monocytes 0.5 10^3/ul (0-0.8); ABS Neutrophils 8.6 10^3/ul (1.5-7.7); ABS Nucleated RBC 0 10^3/ul; Eosinophil % 0.8 % (0-6); Hematocrit 34 % (35-47); Hemoglobin 12.2 g/dl (12.0-16.0); Lymphocyte % 14.1 % (25-47); Mean Corpuscular HGB Conc 35 g/dl (31-36); Mean Corpuscular Hemoglobin 32 pg (27-31); Mean Corpuscular Volume 90 fL (80-97); Mean Platelet Volume 8.4 um3 (7.4-10.4); Nucleated Red Blood Cells % 0.1; Platelet Count 191 10^3/ul (150-450); Red Blood Count 3.82 10^6/ul (4.00-5.40); Red Cell Distribution Width 13 % (10.5-15); White Blood Count 10.7 10^3/ul (3.5-10.8)
--- NOTE | 2017-09-10 22:00 | ED ---
- HPI Summary HPI Summary: Patient is a 32-year-old female presenting to the ED with a 2 hour history of nausea vomiting after eating some chicken this afternoon. She also endorses concern over no movement over the past 3 days. Patient is 16 weeks . She is . Denies any vaginal bleeding or discharge. Endorses bilateral lower abdominal cramping. Last episode of emesis was approximately 1 hour [employer]. She states she has no antiemetics at home. Takes vitamin daily but otherwise denies any medications. She denies any constipation, diarrhea. at bedside states he also ate the same chicken, but denies any symptoms. - History of Current Complaint Chief Complaint: EDNauseaVomitDiarrh Stated Complaint: VOMITING Time Seen by Provider: 09/10/17 21:01 Hx Obtained From: Patient Chief Complaint: Other: - nausea/vomiting Onset/Duration: Started Hours Ago Timing: Constant Severity: Moderate Current Severity: Moderate Pain Intensity: 4 Associated Signs and Symptoms: Positive: Vomiting - Assessment Hx Now: Yes SAB: 1 IEA: 0 - Additional Pertinent History Primary Care Physician: JAN Maternal Blood Type and Rh: A Positive - Allergies/Home Medications Allergies/Adverse Reactions: Allergies Allergy/AdvReac Type Severity Reaction Status Date / Time bee venom protein (honey bee) Allergy Shortness Verified 08/25/17 19:05 of Breath PMH/Surg Hx/FS Hx/Imm Hx Previously Healthy: Yes Endocrine/Hematology History: Denies: Hx Anticoagulant Therapy, Hx Diabetes, Hx Thyroid Disease Cardiovascular History: Denies: Hx Congestive Heart Failure, Hx Deep Vein Thrombosis, Hx Hypertension , Hx Myocardial Infarction, Hx Pacemaker/ICD Comment Only: Other Cardiovascular Problems/Disorders - Family Hx of cardiac Dxs Respiratory History: Denies: Hx Asthma, Hx Chronic Obstructive Pulmonary Disease (COPD), Hx Lung Cancer, Hx Pneumonia, Hx Pulmonary Embolism GI History: Reports: Hx Ulcer Denies: Hx Gall Bladder Disease, Hx Gastrointestinal Bleed, Hx Urosepsis History: Reports: Other Problems/Disorders - ulcers Denies: Hx Kidney Stones, Hx Renal Disease Sensory History: Denies: Hx Contacts or Glasses, Hx Hearing Aid Opthamlomology History: Denies: Hx Contacts or Glasses Neurological History: Denies: Hx Dementia, Hx Migraine, Hx Seizures, Hx Transient Ischemic Attacks (TIA) Psychiatric History: Denies: Hx Anxiety, Hx Depression, Hx Schizophrenia, Hx Bipolar Disorder - Surgical History Surgery Procedure, Year, and Place: 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 Hx Pertussis Vaccination: No Immunizations Up to Date: Unable to Obtain/Confirm Infectious Disease History: No Infectious Disease History: Denies: History Other Infectious Disease, Traveled Outside the [place] in Last 30 Days - Family History Known Family History: Positive: Cardiac Disease - [place] before 40 to father and sister, Hypertension, Diabetes - Grandmother, Other - atopy - Social History Occupation: Employed Part-time Lives: With Family Alcohol Use: Rare Hx Substance Use: No Substance Use Type: Reports: None Hx Tobacco Use: No Smoking Status (MU): Never Smoked Tobacco Have You Smoked in the Last Year: No Review of Systems Constitutional: Negative Negative: Fever, Fatigue, Skin Diaphoresis Negative: Palpitations, Chest Pain Negative: Shortness Of Breath, Cough Positive: Vomiting, Nausea. Negative: Abdominal Pain, Diarrhea Genitourinary: Negative Positive: no symptoms reported, see HPI Negative: Arthralgia, Myalgia Neurological: Negative Psychological: Normal All Other Systems Reviewed And Are Negative: Yes Physical Exam - Physical Exam Triage Information Reviewed: Yes Vital Signs Reviewed: Yes Appearance: Positive: No Pain Distress, Well-Nourished Skin: Positive: Skin Color Reflects Adequate Perfusion Head/Face: Positive: Normal Head/Face Inspection Eyes: Positive: EOMI, RAQUEL, Conjunctiva Clear Neck: Positive: Supple, Nontender Respiratory/Lung Sounds: Positive: Clear to Auscultation, Breath Sounds Present Cardiovascular: Positive: RRR, Pulses are Symmetrical in both Upper and Lower Extremities Musculoskeletal: Positive: Normal, Strength/ROM Intact Neurological: Positive: Sensory/Motor Intact, Alert, Oriented to Person Place, Time, Speech Normal Psychiatric: Positive: Normal, Affect/Mood Appropriate AVPU Assessment: Alert Diagnostics - Vital Signs Vital Signs Temp Pulse Resp BP Pulse Ox 09/10/17 20:43 98.3 F 83 20 116/64 100 - Laboratory Lab Results: Lab Results 09/10/17 Range/Units 21:50 WBC 10.7 (3.5-10.8) 10^3/ul RBC 3.82 L (4.00-5.40) 10^6/ul Hgb 12.2 (12.0-16.0) g/dl Hct 34 L (35-47) % MCV 90 (80-97) fL MCH 32 H (27-31) pg MCHC 35 (31-36) g/dl RDW 13 (10.5-15) % Plt Count 191 (150-450) 10^3/ul MPV 8.4 (7.4-10.4) um3 Neut % (Auto) 80.4 (38-83) % Lymph % (Auto) 14.1 L (25-47) % [place] % (Auto) 4.5 (0-7) % Eos % (Auto) 0.8 (0-6) % Baso % (Auto) 0.2 (0-2) % Absolute Neuts (auto) 8.6 H (1.5-7.7) 10^3/ul Absolute Lymphs (auto) 1.5 (1.0-4.8) 10^3/ul Absolute Monos (auto) 0.5 (0-0.8) 10^3/ul Absolute Eos (auto) 0.1 (0-0.6) 10^3/ul Absolute Basos (auto) 0 (0-0.2) 10^3/ul Absolute Nucleated RBC 0 10^3/ul Nucleated RBC % 0.1 Result Diagrams: 09/10/17 21:50 09/10/17 21:50 Lab Statement: Any lab studies that have been ordered have been reviewed, and results considered in the medical decision making process. Course/Dx - Course Course Of Treatment: During the course treatment, the patient's evaluated for food poisoning versus nausea vomiting in . heart tones obtained which are WNL. Labs obtained which are unremarkable. Patient is given Reglan and 1 L NS with good relief. On physical examination, patient is appearing well , moist mucous membranes. Lungs CTA. RRR. Tenderness to the bilateral lower quadrants. She states she has Reglan at home is feeling comfortable to be discharged at this time. - Diagnoses Provider Diagnoses: Nausea & vomiting Discharge - Sign-Out/Discharge Documenting (check all that apply): Discharge/Admit/Transfer - Discharge Plan Condition: Stable Disposition: HOME Referrals: Arnold Webster MD [Primary Care Provider] - Additional Instructions: Take reglan as needed for nausea drink plenty of water follow up with PCP - Billing Disposition and Condition Condition: STABLE Disposition: Home
[2017-09-10 22:13] LABS: EGFR Non-African American 109.5 (>60)
[2017-09-10 22:54] VITALS: BP 118/74
== END | disposition home or self-care (01) ==
LOC: ED 20:38
DX: O21.9 Vomiting of pregnancy, unspecified (principal); Z3A.16 16 weeks gestation of pregnancy
CPT/HCPCS: 36415; 80053; 85025; 96374; 99282; J2765

== ENCOUNTER 2018-02-02 08:45 | Inpatient (IN) | payer OTHER ==
[~2018-02-02 08:45] MED LIST changes: +Buffered Lidocaine 0.9% SYRIN* 5 ML/SYR SYRINGE INTRADERM ONE; -Metoclopramide IV* 5 MG/ML 2 ML VIAL IV ONE; -NS 0.9% 1000 ML* 1,000 ML IV ONE; +Sodium Citrate/Citric Acid* 15 ML UDC PO ONE
[2018-02-02] MEDS ORDERED: Sodium Citrate/Citric Acid* 15 ML UDC ONE (09:30)
[2018-02-02] MEDS ORDERED: ceFOXitin 2 GM IVPREMIX* 2 GM/50 ML BAG IVPB ONE (10:00)
[2018-02-02] MEDS ORDERED: Morphine PF AMP (0.5MG/ML)* 5 MG/10 ML AMP ONE (11:10)
[2018-02-02] MEDS ORDERED: EPHEDrine (Pressors)* 50 MG/ML VIAL ONE (11:22)
[2018-02-02] MEDS ORDERED: Bupivacaine-MPF SPINAL* 7.5 MG/ML - 2ML AMP ONE (11:22)
[2018-02-02] MEDS ORDERED: OXYTOCIN* 10 UNITS/ML 1 ML VIAL ONE (11:22)
[2018-02-02] MEDS ORDERED: Acetaminophen TAB* 325 MG PO PRN ×2 (12:05→12:28)
[2018-02-02] MEDS ORDERED: Ketorolac INJ* 30 MG/ML 1 ML VIAL IV PRN (12:05)
[2018-02-02] MEDS ORDERED: Naloxone* 0.4 MG/ML 1 ML VIAL IV PRN ×2 (12:05)
[2018-02-02] MEDS ORDERED: Ondansetron INJ* 2 MG/ML VIAL IV PRN ×2 (12:05)
[2018-02-02] MEDS ORDERED: diPHENhydraMINE IV* 50 MG/ML 1 ml VIAL (BENADRYL) IV PRN (12:05)
[2018-02-02] MEDS ORDERED: Nalbuphine* 10 MG/ML 1 ML VIAL IV PRN (12:05)
[2018-02-02] MEDS ORDERED: HYDROmorphone INJ1* 1 MG/ML SYRINGE IV PRN (12:05)
[2018-02-02] MEDS ORDERED: Glycerin ADULT SUPP PR PRN (12:28)
[2018-02-02] MEDS ORDERED: Oxytocin in LR* 20 UNITS/1,000 ML BAG IVPB ONE (12:28)
[2018-02-02] MEDS ORDERED: Dibucaine 1% 28.35 GM TUBE PR PRN (12:28)
[2018-02-02] MEDS ORDERED: Zolpidem TAB* 5 MG PO PRN (12:28)
[2018-02-02] MEDS ORDERED: Misoprostol TAB* 200 MCG ONE (12:28)
[2018-02-02] MEDS ORDERED: Witch Hazel PAD* JAR TOPICAL PRN (12:28)
[2018-02-02] MEDS ORDERED: Misoprostol TAB* 200 MCG PR ONE (12:30)
[2018-02-02] MEDS ORDERED: Oxytocin in LR* 20 UNITS/1,000 ML BAG IVPB SCH (13:00)
[2018-02-02] MEDS: Ketorolac INJ* 30 MG/ML 1 ML VIAL IV PRN ×2 (14:56→21:17)
[2018-02-02] MEDS ORDERED: HYDROmorphone INJ* 0.5 MG/0.5 ML SYRINGE IV PRN (15:00)
[2018-02-02] MEDS: oxyCODONE/Acetamin 5/325 MG* TAB PO PRN ×2 (15:24→20:00)
[2018-02-02] MEDS: Simethicone TAB* 80 MG TAB.CHEW PO SCH ×2 (18:08→20:00)
[2018-02-02] MEDS: Docusate CAP* 100 MG PO SCH ×2 (18:09→20:00)
[2018-02-02] MEDS: Ursodiol CAP* 300 MG PO SCH (21:33)
[2018-02-02] MEDS ORDERED: diPHENhydraMINE PO* 25 MG PO PRN (21:38)
[2018-02-02] MEDS ORDERED: diPHENhydraMINE PO* 25 MG ONE (21:42)
[2018-02-03] MEDS: oxyCODONE/Acetamin 5/325 MG* TAB PO PRN ×5 (00:25→22:05)
[2018-02-03] MEDS: Ketorolac INJ* 30 MG/ML 1 ML VIAL IV PRN ×2 (03:06→10:17)
[2018-02-03] MEDS: Ursodiol CAP* 300 MG PO SCH ×3 (03:06→22:04)
[2018-02-03 06:48] LABS: ABS Basophils 0 10^3/ul (0-0.2); ABS Eosinophils 0.1 10^3/ul (0-0.6); ABS Lymphocytes 1.8 10^3/ul (1.0-4.8); ABS Monocytes 0.7 10^3/ul (0-0.8); ABS Neutrophils 6.9 10^3/ul (1.5-7.7); ABS Nucleated RBC 0 10^3/ul; Eosinophil % 0.8 %; Hematocrit 30 % (35-47); Hemoglobin 9.9 g/dl (12.0-16.0); Lymphocyte % 18.6 %; Mean Corpuscular HGB Conc 33 g/dl (31-36); Mean Corpuscular Hemoglobin 29 pg (27-31); Mean Corpuscular Volume 86 fL (80-97); Mean Platelet Volume 8.1 fL (7.4-10.4); Nucleated Red Blood Cells % 0.1; Platelet Count 163 10^3/ul (150-450); Red Blood Count 3.47 10^6/ul (4.00-5.40); Red Cell Distribution Width 14 % (10.5-15); White Blood Count 9.4 10^3/ul (3.5-10.8)
[2018-02-03] MEDS: Simethicone TAB* 80 MG TAB.CHEW PO SCH ×4 (09:03→22:04)
[2018-02-03] MEDS: Docusate CAP* 100 MG PO SCH ×3 (09:03→22:05)
[2018-02-03] MEDS: Ferrous Gluconate TAB* 324 MG TAB PO SCH ×2 (09:27→22:06)
--- NOTE | 2018-02-03 09:38 | OP ---
DATE OF OPERATION: 02/02/18 - ROOM #118 DATE OF : 85. SURGEON: Medhat Parrish M.D. CONSTRUCTION SUPERINTENDENT: Dr. Etienne and Kush Will CNM ANESTHESIA: Spinal. PRE-OP DIAGNOSES: Placenta previa, cholestasis , 2-vessel cord, 35 plus 6 weeks, desires permanent sterilization, back down transverse lie. POST-OP DIAGNOSES: Placenta previa, cholestasis , 2-vessel cord, 35 plus 6 weeks, desires permanent sterilization. OPERATIVE PROCEDURE: Low transverse section and bilateral tubal ligation. FINDINGS: At the time of , she had a placenta previa posterior wrapping around to the anterior lower uterine segment. Baby was male, Apgars 9 and 9, weight was 6 pounds 5 ounces, normal appearing fallopian tubes and ovaries. Uterus contained discrete large vasculature along the low uterine segment on the right. ESTIMATED BLOOD LOSS: 600 mL. SPECIMEN: Include placenta and fallopian tubes. DESCRIPTION OF PROCEDURE: The patient identified, procedure identified as a low - transverse section and bilateral tubal ligation. The patient was taken to the operating room, prepped and draped in the usual fashion in the left lateral recumbent position under spinal anesthesia. A Pfannenstiel incision was made in the abdomen and carried down through fat, fascia, and peritoneum. A bladder flap was created via sharp and blunt dissection. A transverse incision was made in the lower uterine segment and extended laterally using blunt dissection. The above infant was grasped by the buttocks and brought down into the incision at which time brought out in the breech extraction manner without difficulty. The cord was doubly clamped and cut, and the infant was handed to the awaiting home delivery driver. Cord blood was obtained. Placenta delivered spontaneously. The uterus was wiped out with a wet lap sponge. The lower uterine segment was inspected and found to be having no significant vessels that were bleeding. The uterine incision was then closed using 0 Polysorb in a running fashion. A second layer was used to imbricate the first layer. Good hemostasis was verified. The right fallopian tube was grasped at the fimbriated end and the fimbria was ligated x2 and then excised on the right, and then same procedure carried out on the left. Good hemostasis. The uterus was placed back into the abdominal cavity. The tubal ligation sites were inspected and found to be hemostatic. Hemostasis on the uterus was obtained using 3-0 Polysorb [id number] sutures. Good hemostasis again was verified and the peritoneum was then closed using 3-0 Polysorb in a running fashion. Good hemostasis achieved in the subrectus layers. The fascia was closed using 0 Polysorb in a running fashion and the skin was closed with 4-0 Monocryl in a subcuticular fashion. All sponge and instrument counts were correct and the patient returned to the recovery room in stable condition. [id number]/[facility] #: [id number] [place]
[2018-02-03] MEDS: Ibuprofen TAB* 600 MG PO PRN (19:22)
[2018-02-04] MEDS: oxyCODONE/Acetamin 5/325 MG* TAB PO PRN ×5 (02:33→19:59)
[2018-02-04] MEDS: Ibuprofen TAB* 600 MG PO PRN ×3 (07:38→21:07)
[2018-02-04] MEDS: Docusate CAP* 100 MG PO SCH ×3 (08:43→21:08)
[2018-02-04] MEDS: Ursodiol CAP* 300 MG PO SCH ×4 (08:43→21:59)
[2018-02-04] MEDS: Ferrous Gluconate TAB* 324 MG TAB PO SCH ×2 (08:44→21:08)
[2018-02-04] MEDS: Simethicone TAB* 80 MG TAB.CHEW PO SCH ×4 (08:44→21:08)
[2018-02-05] MEDS: oxyCODONE/Acetamin 5/325 MG* TAB PO PRN ×4 (00:06→11:58)
[2018-02-05] MEDS: Ibuprofen TAB* 600 MG PO PRN (07:37)
[2018-02-05 08:00] VITALS: BP 112/61
[2018-02-05] MEDS: Docusate CAP* 100 MG PO SCH (08:08)
[2018-02-05] MEDS: Simethicone TAB* 80 MG TAB.CHEW PO SCH (08:08)
[2018-02-05] MEDS: Ferrous Gluconate TAB* 324 MG TAB PO SCH (08:08)
[2018-02-05] MEDS: Ursodiol CAP* 300 MG PO SCH (08:09)
== END 2018-02-05 12:00 | disposition home or self-care (01) | DRG 540 ==
LOC: MCHOB 08:45
PROVIDERS: ADMIT Obstetrics & Gynecology; ATTEND Obstetrics & Gynecology
PROC: 0UB70ZZ Excision of Bilateral Fallopian Tubes, Open Approach (ICD-10-PCS; 2018-02-02)
PROC: 10D00Z1 Extraction of Products of Conception, Low, Open Approach (ICD-10-PCS; principal; 2018-02-02 11:00)
DX: O44.03 Complete placenta previa NOS or without hemorrhage, third trimester (principal); K83.1 Obstruction of bile duct; O26.62 Liver and biliary tract disorders in childbirth; O90.81 Anemia of the puerperium; D64.9 Anemia, unspecified; Z3A.35 35 weeks gestation of pregnancy; Z37.0 Single live birth
CPT/HCPCS: 36415; 76815; 85025; A9270-GY; J0694; J1885; J2590

== ENCOUNTER 2018-11-10 11:49 | Emergency (ER) | payer SELFPAY ==
[2018-11-10 12:14] VITALS: BP 116/76
--- NOTE | 2018-11-10 12:34 | UC ---
Respiratory Complaint HPI - HPI Summary HPI Summary: 33 yo female presents with cough. She tells me that she was seen here around the end of october and, at that time, had a productive cough for 2 weeks. She was placed on a zpak at that time. She finished the zpak, but is here today reporting no change in her symptoms. She is still having an intermittently productive cough with green sputum. She has not been taking anything OTC. Denies fever, chills, sore throat, sinus symptoms, SOB, chest pain. - History of Current Complaint Chief Complaint: UCGeneralIllness Stated Complaint: CHEST CONGESTION Time Seen by Provider: 11/10/18 12:27 Hx Obtained From: Patient Hx Last Menstrual Period: 10/21/18 Onset/Duration: Gradual Onset Severity Currently: None Pain Intensity: 0 Character: Cough: Productive - Allergies/Home Medications Allergies/Adverse Reactions: Allergies Allergy/AdvReac Type Severity Reaction Status Date / Time bee venom protein (honey bee) Allergy Shortness Verified 11/10/18 12:09 of Breath PMH/Surg Hx/FS Hx/Imm Hx - Additional Past Medical History Additional PMH: None Other History Of: Negative For: HIV, Hepatitis B, Hepatitis C, Anticoagulant Therapy - Surgical History Surgical History: Yes Surgery Procedure, Year, and Place: 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 - Family History Known Family History: Positive: Cardiac Disease - [place] before 40 to father and sister, Hypertension, Diabetes - Grandmother, Other - atopy - Social History Alcohol Use: None Substance Use Type: None Smoking Status (MU): Never Smoked Tobacco Have You Smoked in the Last Year: No - Immunization History Most Recent Influenza Vaccination: 01/05/18 Most Recent Tetanus Shot: 2012 Most Recent Pneumonia Vaccination: 06/08/12 Review of Systems All Other Systems Reviewed And Are Negative: No Constitutional: Positive: Negative Skin: Positive: Negative Eyes: Positive: Negative ENT: Positive: Negative Respiratory: Positive: Cough Cardiovascular: Positive: Negative Gastrointestinal: Positive: Negative Physical Exam - Summary Physical Exam Summary: GENERAL: NAD. WDWN. No pain distress. SKIN: No rashes, sores, lesions, or open wounds. HEENT: Head: AT/NC Eyes: Conjunctiva clear without inflammation or discharge. Ears: Hearing grossly normal. TMs intact, no bulging, erythema, or edema. Nose: Nasal mucosa pink and moist. NTTP maxillary and frontal sinus. Throat: Posterior oropharynx without exudates, erythema, or tonsillar enlargement. Uvula midline. NECK: Supple. Nontender. No lymphadenopathy. CHEST: Mild wheezing throughout. No r/r. No accessory muscle use. Breathing comfortably and in no distress. CV: RRR. Without m/r/g. Pulses intact. Cap refill <2seconds NEURO: Alert. PSYCH: Age appropriate behavior. Triage Information Reviewed: Yes Vital Signs: Initial Vital Signs Temp 98.4 F 11/10/18 12:10 Pulse 72 11/10/18 12:10 Resp 20 11/10/18 12:10 BP 116/76 11/10/18 12:10 Pulse Ox 98 11/10/18 12:10 Vital Signs Reviewed: Yes Diagnostics - Radiology CXR Radiology Interpretation Completed By: Radiologist Summary of Radiographic Findings: IMPRESSION: #. No evidence for pneumonia. Negative exam. Respiratory Course/Dx - Course Course Of Treatment: CXR negative. Suspect bronchitis. Will rx for prednisone and albuterol. Advised to f/u with pcp if symptoms do not improve - Differential Dx/Diagnosis Provider Diagnosis: Bronchitis Discharge ED - Sign-Out/Discharge Documenting (check all that apply): Patient Departure All imaging exams completed and their final reports reviewed: Yes - Discharge Plan Condition: Stable Disposition: HOME Prescriptions: Albuterol HFA INHALER* [Ventolin HFA Inhaler*] 1 puff INH Q4H PRN #1 mdi PRN Reason: Cough predniSONE [Deltasone 20 MG TAB] 40 mg PO DAILY 5 Days #10 tablet Patient Education Materials: Acute Bronchitis (ED) Referrals: Arnold Webster MD [Primary Care Provider] - Additional Instructions: If you develop a fever, shortness of breath, chest pain, new or worsening symptoms - please call your PCP or go to the ED immediately. If your symptoms do not improve with the prednisone and inhaler - please follow up with your primary doctor for a recheck - Billing Disposition and Condition Condition: STABLE Disposition: Home - Attestation Statements Provider Attestation: Per institutional requirements, I have reviewed the chart, however, I was not consulted specifically or made aware of this patient by the midlevel provider. I did not personally evaluate, interact with , or disposition this patient.
== END 2018-11-10 14:05 | disposition home or self-care (01) ==
LOC: UCEAST 11:49
DX: J40 Bronchitis, not specified as acute or chronic (principal); Z91.030 Bee allergy status
CPT/HCPCS: 71046; 99212; G0463

== ENCOUNTER 2018-12-30 11:05 | Emergency (ER) | payer MEDICAID ==
[2018-12-30 11:12] VITALS: BP 111/73
--- NOTE | 2018-12-30 12:15 | UC ---
Lower Extremity/Ankle HPI - HPI Summary HPI Summary: patient stubbed R 5th toe on table last pm in dark. very painful, slightly swollen - History of Current Complaint Chief Complaint: UCLowerExtremity Stated Complaint: TOE INJURY Time Seen by Provider: 12/30/18 11:47 Hx Obtained From: Patient Hx Last Menstrual Period: 12/24/18 Onset/Duration: Sudden Onset Severity Initially: Severe Severity Currently: Moderate Pain Intensity: 8 Aggravating Factor(s): Standing, Ambulation Alleviating Factor(s): Rest, Elevation Able to Bear Weight: Yes - with pain - Allergies/Home Medications Allergies/Adverse Reactions: Allergies Allergy/AdvReac Type Severity Reaction Status Date / Time bee venom protein (honey bee) Allergy Shortness Verified 12/30/18 11:13 of Breath Home Medications: Home Medications NK [No Home Medications Reported] 12/30/18 [History Confirmed 12/30/18] PMH/Surg Hx/FS Hx/Imm Hx Previously Healthy: Yes Other History Of: Negative For: HIV, Hepatitis B, Hepatitis C, Anticoagulant Therapy - Surgical History Surgical History: Yes Surgery Procedure, Year, and Place: 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 - Family History Known Family History: Positive: Cardiac Disease - [place] before 40 to father and sister, Hypertension, Diabetes - Grandmother, Other - atopy - Social History Occupation: Unemployed Lives: With Family Alcohol Use: None Substance Use Type: None Smoking Status (MU): Never Smoked Tobacco Have You Smoked in the Last Year: No - Immunization History Most Recent Influenza Vaccination: 01/05/18 Most Recent Tetanus Shot: 2012 Most Recent Pneumonia Vaccination: 06/08/12 Review of Systems All Other Systems Reviewed And Are Negative: Yes Constitutional: Positive: Negative Respiratory: Positive: Negative Cardiovascular: Positive: Negative Neurovascular: Positive: Negative Musculoskeletal: Positive: Other: - pain right 5th toe Neurological: Positive: Negative Psychological: Positive: Negative Is Patient Immunocompromised?: No Physical Exam Triage Information Reviewed: Yes Appearance: Well-Appearing, No Pain Distress, Well-Nourished Vital Signs: Initial Vital Signs Temp 98 F 12/30/18 11:10 Pulse 87 12/30/18 11:10 Resp 16 12/30/18 11:10 BP 111/73 12/30/18 11:10 Pulse Ox 100 12/30/18 11:10 Vital Signs Reviewed: Yes Respiratory Exam: Normal Respiratory: Positive: Lungs clear Cardiovascular Exam: Normal Cardiovascular: Positive: RRR Musculoskeletal: Positive: Other: - pain, swelling, no deformity R 5th toe Neurological Exam: Normal Psychological Exam: Normal Skin Exam: Normal Skin: Positive: Other - no bleeding Diagnostics - Radiology No standard instances Radiology Interpretation Completed By: Radiologist - NONDISPLACED FRACTURE OF THE DISTAL FIFTH DIGIT. Lower Extremity Course/Dx - Differential Dx/Diagnosis Differential Diagnosis/HQI/PQRI: Contusion, Fracture (Closed), Strain Provider Diagnosis: Fractured toe Discharge ED - Sign-Out/Discharge Documenting (check all that apply): Patient Departure All imaging exams completed and their final reports reviewed: Yes - NONDISPLACED FRACTURE OF THE DISTAL FIFTH DIGIT. - Discharge Plan Condition: Good Disposition: HOME Patient Education Materials: Toe Fracture (ED) Referrals: Arnold Webster MD [Primary Care Provider] - Sosa Copeland MD [Medical Doctor] - 5 Days (if no better) Additional Instructions: ice and elevate right foot use ibuprofen as directed for pain use post op shoe for 1 week when walking or standing - Billing Disposition and Condition Condition: GOOD Disposition: Home
== END 2018-12-30 12:26 | disposition home or self-care (01) ==
LOC: UCEAST 11:05
DX: S92.534A Nondisplaced fracture of distal phalanx of right lesser toe(s), initial encounter for closed fracture (principal); Z91.030 Bee allergy status; W22.03XA Walked into furniture, initial encounter; Y92.9 Unspecified place or not applicable
CPT/HCPCS: 99212; G0463